=== PATIENT | male | born 1985 | race Caucasian/White ===

== ENCOUNTER 2018-07-23 16:59 | Emergency (ER) | payer OTHER ==
[~2018-07-23] VITALS: Ht 167.6 cm; Wt 70.3 kg
[2018-07-23 17:39] VITALS: BP 139/87
--- NOTE | 2018-07-23 20:22 | NUR ---
Note [email or web address] in ED - 07/23/18 at 2048 by FATOU CALLED IN A DN OUT OF LOBBY X 3 WITHOUT ANSWER. PATIENT LEFT WITHOUT BEING SEEN BY DR. HUA. NO FURTHER CARE PROVIDED FOR PATIENT.
--- NOTE | 2018-07-23 20:22 | NUR ---
CALLED IN A DN OUT OF LOBBY X 3 WITHOUT ANSWER. PATIENT LEFT WITHOUT BEING SEEN BY DR. WHEAT. NO FURTHER CARE PROVIDED FOR PATIENT.
== END 2018-07-23 20:22 | disposition left against medical advice (07) ==
LOC: MED 16:59
DX: R10.9 Unspecified abdominal pain (principal); Z53.21 Procedure and treatment not carried out due to patient leaving prior to being seen by health care provider